=== PATIENT | male | born 1980 | race Caucasian/White ===

== ENCOUNTER 2020-09-24 19:13 | Emergency (ER) | payer OTHER ==
[~2020-09-24] VITALS: Ht 177.8 cm; Wt 86.2 kg
[~2020-09-24 19:13] MED LIST: ANAPROX DS550 MG PO; AUGMENTIN 875-1 EACH PO; NAPROSYN500 MG PO; NORCO 5-325 TA1 EACH PO; NORCO 7.5-3251 EACH PO; PREDNISONE20 MG PO; ROBAXIN500 MG PO
[2020-09-24] MEDS ORDERED: PROPRANOLOL HCL40 MG PO (19:41)
[2020-09-24] MEDS ORDERED: NORCO 5-325 TA1 EACH PO (22:30)
== END 2020-09-24 23:10 | disposition home or self-care (01) ==
LOC: ED 19:13
DX: S16.1XXA Strain of muscle, fascia and tendon at neck level, initial encounter (principal); V58.6XXA Passenger in pick-up truck or van injured in noncollision transport accident in traffic accident, initial encounter; F17.200 Nicotine dependence, unspecified, uncomplicated; Z79.899 Other long term (current) drug therapy
CPT/HCPCS: 70450; 71260; 72125; 74177; 80053; 85025; 96374; 96376; 99284-25; J1170; J7030; Q9967

== ENCOUNTER 2025-08-16 18:36 | Emergency (ER) | payer BC ==
[~2025-08-16] VITALS: Ht 177.8 cm; Wt 83.2 kg
[~2025-08-16 18:36] MED LIST changes: +PROPRANOLOL HCL40 MG PO
[2025-08-16] MEDS ORDERED: ZANAFLEX4 MG PO (18:56)
[2025-08-16] MEDS ORDERED: OXYCODONE HCL5 M3 PO (18:56)
[2025-08-16] MEDS ORDERED: BACLOFEN10 MG PO (20:19)
[2025-08-16 20:28] LABS: BASOPHILS 0.1 % (0.2-1.2); EOSINOPHILS 0 % (0.8-7.0); LYMPHOCYTES 5.3 % (21.8-53.1); MCH 29.9 PG (25.7-32.2); MCHC 34.2 g/dL (32.3-36.5); MCV 87.5 fL (79.0-92.2); MONOCYTES 1.1 % (5.3-12.2); NEUTROPHILS 93.1 % (34.0-67.9); RBC 4.95 M/uL (4.63-6.08)
[2025-08-16 20:36] VITALS: BP 116/68
== END 2025-08-16 20:37 | disposition home or self-care (01) ==
LOC: ED 18:36
PROVIDERS: Family Medicine
DX: M79.661 Pain in right lower leg (principal); G43.909 Migraine, unspecified, not intractable, without status migrainosus; F17.200 Nicotine dependence, unspecified, uncomplicated; Z79.899 Other long term (current) drug therapy
CPT/HCPCS: 36415; 85025; 99283-25